=== PATIENT | female | born 1995 | race Caucasian/White ===

== ENCOUNTER 2017-06-05 23:21 | Emergency (ER) | payer BC ==
[2017-06-05 23:23] VITALS: Ht 180.3 cm
[2017-06-05] MEDS ORDERED: IBUPROFEN 800 MG TAB PO STA (23:34)
[2017-06-05] MEDS ORDERED: ACETAMINOPHEN 500 MG TAB PO STA (23:34)
[2017-06-06 00:13] VITALS: PULSE 70; TEMP 37.1; O2SAT 98
--- NOTE | 2017-06-06 00:20 | EMERGENCY ROOM VISIT NOTE ---
History First contact with patient: 23:31 Chief Complaint: FOOT PAIN Stated Complaint: L ANKLE/FOOT PAIN History of Present Illness The patient is a 21 year old female who presents to the Emergency Room with complaints of left ankle pain after slipping on an uneven surface this evening and twisting her ankle. The patient currently denies any pain extending into the leg or foot. It hurts predominantly over the outer aspect of the ankle. The patient does report a prior history of ankle sprain in high school. She rates her discomfort an 8 out of 10. She has not had an opportunity to take anything for pain or apply ice. She came directly to the emergency department. Review of Systems 10 system review was performed and was negative except for pertinent positives and negatives as indicated in history of present illness Past Medical/Surgical History Medical Problems: (1) No significant past medical history Surgical Problems: (1) No history of previous surgery Family History Unremarkable Social History Smoking Status: Never Smoker Alcohol Use: none Marital Status: single Occupation Status: [employer] student Current/Historical Medications No Active Prescriptions or Reported Meds Physical Exam Vital Signs Date Time Temp Pulse Resp B/P (MAP) Pulse Ox O2 Delivery O2 Flow Rate FiO2 06/06/17 00:13 37.1 70 20 98 Room Air 06/05/17 23:23 37.4 70 20 136/91 98 Room Air Physical Exam CONSTITUTIONAL: Morbidly obese female, alert and oriented X 3 with positive affect. She appears in moderate discomfort from pain. HEENT: Normocephalic, atraumatic. Pupils equal, round and reactive. NECK: Full active range of motion without discomfort. MUSCULOSKELETAL: Examination of the left ankle shows predominant lateral edema without any puncture wounds, ecchymosis or obvious deformity. She has no immediate discomfort over the deltoid ligament, calcaneus, Achilles tendon, dorsal midfoot, metatarsals or phalanges. Pedal pulses are intact. INTEGUMENTARY: No rash or other significant dermatologic conditions noted. NEUROLOGIC: Left foot and toes are sensory intact. Medical Decision & Procedures ER Provider Diagnostic Interpretation: My interpretation of left ankle x-rays does not show any acute fractures, dislocation or ankle mortise asymmetry. Radiologist report is pending. Medications Administered Medications (Trade) Dose Ordered Sig/Annie Route Start Time Stop Time Status Last Admin Dose Admin Ibuprofen (Motrin Tab) 800 mg NOW STAT PO 06/05/17 23:34 06/05/17 23:35 DC 06/05/17 23:49 800 MG Acetaminophen (Tylenol Tab) 1,000 mg NOW STAT PO 06/05/17 23:34 06/05/17 23:35 DC 06/05/17 23:49 1,000 MG ED Course Patient history and physical exam were performed. Nurse's notes were reviewed. Vital signs were reviewed and were normal. The patient was administered ibuprofen 800 mg and Tylenol 1 g for pain. X-rays of the left ankle were normal. There were no crutches in the emergency department to be dispensed. I also placed an order for an ankle gel splint, however it was not large enough to fit the girth of her distal leg. The patient, however, reported that it did provide some support, and requested that we further supply an Ben wrap, which was applied. The patient was encouraged to intermittently apply ice and elevate ankle for swelling. She was encouraged to alternate ibuprofen and Tylenol for pain relief. She was instructed to follow-up with orthopedics if symptoms are not improved within the next week. The patient voiced understanding of all discharge instructions, was happy with plan of care, and rated her discomfort a 6 out of 10 at the time of discharge. Medical Decision Medication Reconcilliation Current Medication List: was personally reviewed by me Blood Pressure Screening Patient's blood pressure: Normal blood pressure Impression Primary Impression: Left ankle sprain Departure Information Prescriptions No Active Prescriptions or Reported Meds Referrals No Doctor, Assigned (PCP) Patient Instructions My [facility] Problem Qualifiers Primary Impression: Left ankle sprain Encounter type: initial encounter Involved ligament of ankle: unspecified ligament Qualified Codes: S93.402A - Sprain of unspecified ligament of left ankle, initial encounter
[2017-06-06 00:25] VITALS: BP 134/96
--- NOTE | 2017-06-06 07:09 | DIAGNOSTIC IMAGING REPORT ---
L ANKLE MIN 3 VIEWS ROUTINE CLINICAL HISTORY: Left ankle pain status post trauma COMPARISON: None. DISCUSSION: No acute fractures are visualized. There is a tiny plantar calcaneal spur. There is lateral soft tissue swelling. There is mild medial malleolar spurring. IMPRESSION: Lateral soft tissue swelling. No acute fractures or dislocations identified. Electronically signed by: Jeff Jarvis M.D. 06/06/2017 7:08 AM Dictated Date/Time: 06/06/2017 7:08 AM
== END 2017-06-06 00:26 | disposition home or self-care (01) ==
LOC: C.EDB 23:23 → C.EDA 06-06 00:26
DX: S93.402A Sprain of unspecified ligament of left ankle, initial encounter (principal); M25.572 Pain in left ankle and joints of left foot; X50.1XXA Overexertion from prolonged static or awkward postures, initial encounter; Y92.89 Other specified places as the place of occurrence of the external cause